=== PATIENT | female | born 1970 | race Caucasian/White ===

== ENCOUNTER 2020-05-20 22:08 | Emergency (ER) | payer OTHER ==
[~2020-05-20] VITALS: Ht 167.6 cm; Wt 99.8 kg
--- NOTE | 2020-05-20 22:17 | NUR ---
ER in tent examining patient.
[2020-05-20 22:20] VITALS: BP_SYST 160
--- NOTE | 2020-05-20 22:20 | NUR ---
Pt c/o 2-day history of left lower abdominal pain. Patient stated the pain is intermittent. Patient states it was around a 7/10 while she was at home. The pain radiated from her lower abdomen into her left flank pain she does not have a kidney stone history. Patient denied any dysuria, hematuria. Patient has some nausea, +frequency of urination. Patient denied any diarrhea. Patient has no fever or chills. She denied any shortness of breath, breathing easy, unlabored. Pt ambulatory with steady gait
[2020-05-20] MEDS ORDERED: cefTRIAXone 1 GM in LIDOCAINE 1%, 20 ML MDV 2.1 ML IM ONE (23:00)
[2020-05-20] MEDS ORDERED: KETOROLAC TROMETHAMINE 60 MG/2 ML VIAL IM ONE (23:00)
[2020-05-20] MEDS ORDERED: cefTRIAXone 1 GM VIAL ONE (23:20)
[2020-05-20] MEDS ORDERED: LIDOCAINE 1%, 20 ML MDV 20 ML ONE (23:20)
[2020-05-21 00:05] VITALS: BP_SYST 145
--- NOTE | 2020-05-21 00:05 | NUR ---
Patient given written and verbal discharge instructions by Dr Tolbert and verbalizes understanding. ER MD discussed with patient the results and treatment provided. Patient in stable condition. ID arm band removed. Rx of Pyridium and Macrobid given. Patient educated on pain management and to follow up with PMD by Dr Tolbert. Pain Scale 2/10. Opportunity for questions provided and answered.
== END 2020-05-21 00:05 | disposition home or self-care (01) ==
LOC: SED 22:08
DX: N39.0 Urinary tract infection, site not specified (principal)
CPT/HCPCS: 81002; 81025; 96372; 99284; J0696; J1885; J2001